=== PATIENT | female | born 1965 | race Caucasian/White ===

== ENCOUNTER 2016-10-15 20:06 | Emergency (ER) | payer BC, OTHER ==
[2016-10-15 20:35] VITALS: BP 133/94; PULSE 81; RESP 20; TEMP 98.2; O2SAT 98
== END 2016-10-15 20:45 | disposition home or self-care (01) | DRG 951 ==
LOC: ED 20:06
DX: Z77.21 Contact with and (suspected) exposure to potentially hazardous body fluids (principal); T14.90 Injury, unspecified; W46.0XXA Contact with hypodermic needle, initial encounter; Y92.129 Unspecified place in nursing home as the place of occurrence of the external cause; Y99.0 Civilian activity done for income or pay
CPT/HCPCS: 84460; 99282

== ENCOUNTER 2018-03-10 03:37 | Emergency (ER) | payer BC, OTHER ==
[2018-03-10 04:19] LABS: BASOPHILS % (AUTO) 1 % (0-3); EOSINOPHILS % (AUTO) 2 % (0-9); HEMATOCRIT 40 % (35-47); LYMPHOCYTES % (AUTO) 30.4 % (10-50); MEAN CORPUSCULAR HEMOGLOBIN 28.7 pg (27.0-32.0); MEAN CORPUSCULAR HGB CONC 32.5 gm/dl (32.0-36.0); MEAN CORPUSCULAR VOLUME 88 fL (81-99); MONOCYTES % (AUTO) 11.7 % (0-12); NEUTROPHILS % (AUTO) 55.7 % (37-80)
[2018-03-10] MEDS ORDERED: SODIUM CHLORIDE 0.9% 250 ML 250 ML IV ONE (04:30)
[2018-03-10 04:36] LABS: ALBUMIN 3.2 gm/dl (3.4-5.0); ALKALINE PHOSPHATASE 63 IU/L (46-116); ALT 26 IU/L (14-63); AST 18 IU/L (15-37); BILIRUBIN,TOTAL 0.4 mg/dl (0.2-1.0); BLOOD UREA NITROGEN 17 mg/dl (7-18); CALCIUM 8.5 mg/dl (8.5-10.1); CARBON DIOXIDE 27.2 mEq/L (21-32); CHLORIDE 104 mMol/L (98-107); CREATININE 1.34 mg/dl (0.60-1.00); GLUCOSE 102 mg/dl (74-106); POTASSIUM 4.5 mMol/L (3.5-5.1); SODIUM 140 mMol/L (136-145); TOTAL PROTEIN 6.4 gm/dl (6.4-8.2); TROP I < 0.017 ng/ml (0.000-0.056)
[2018-03-10 04:45] LABS: INR 0.95 (0.86-1.12)
[2018-03-10] MEDS ORDERED: SODIUM CHLORIDE 0.9% 1000ML 1,000 ML IV ONE ×2 (05:02→06:03)
[2018-03-10 06:38] VITALS: TEMP 96.2
[2018-03-10] MEDS ORDERED: NOREPINEPHRINE BITARTRATE 4 MG/4 ML SOL IV ONE (07:26)
[2018-03-10] MEDS ORDERED: NOREPINEPHRINE 4 MG/4 ML 4 MG in DEXTROSE 500 ML 500 ML IV SCH (07:45)
[2018-03-10 07:49] VITALS: BP 86/51; PULSE 70; RESP 16; O2SAT 97
== END 2018-03-10 07:39 | disposition short-term general hospital (02) | DRG 316 ==
LOC: ED 03:37
DX: I95.9 Hypotension, unspecified (principal)
CPT/HCPCS: 36415; 71045; 80053; 83880; 84484; 85025; 85610; 93005; 96365; 96366; 99284; 99285; J3490

== ENCOUNTER 2018-08-07 06:08 | Emergency (ER) | payer OTHER ==
[2018-08-07] MEDS ORDERED: SODIUM CHLORIDE 0.9% 1000ML 1,000 ML IV ONE (06:25)
[2018-08-07] MEDS ORDERED: HYDROMORPHONE 1 MG/ML SYRINGE IV ONE (06:26)
[2018-08-07] MEDS ORDERED: ONDANSETRON HCL 4 MG/2 ML SOL IV ONE (06:27)
[2018-08-07] MEDS ORDERED: ONDANSETRON HCL 4 MG/2 ML SOL ONE (06:43)
[2018-08-07] MEDS ORDERED: HYDROMORPHONE 1 MG/ML SYRINGE ONE (06:43)
[2018-08-07 06:49] LABS: BASOPHILS % (AUTO) 1 % (0-3); EOSINOPHILS % (AUTO) 1 % (0-9); HEMATOCRIT 45 % (35-47); HEMOGLOBIN 14.7 gm/dl (12.0-15.5); LYMPHOCYTES % (AUTO) 12.9 % (10-50); MEAN CORPUSCULAR HEMOGLOBIN 29.1 pg (27.0-32.0); MEAN CORPUSCULAR HGB CONC 33.1 gm/dl (32.0-36.0); MEAN CORPUSCULAR VOLUME 88 fL (81-99); MONOCYTES % (AUTO) 6.3 % (0-12); NEUTROPHILS % (AUTO) 79.4 % (37-80)
[2018-08-07 06:52] LABS: CALCIUM 8.8 mg/dl (8.5-10.1); CARBON DIOXIDE 26.5 mEq/L (21-32); CREATININE 1.11 mg/dl (0.60-1.00); POTASSIUM 3.8 mMol/L (3.5-5.1)
[2018-08-07 07:50] LABS: APPEARANCE,URINE Slightly Cloudy; BILIRUBIN,URINE NEGATIVE (NEGATIVE); COLOR,URINE Dark yellow; GLUCOSE, URINE (UA) NEGATIVE (NEGATIVE); KETONES,URINE TRACE (NEGATIVE); LEUKOCYTE ESTERASE ,URINE NEGATIVE (NEGATIVE); NITRATE,URINE NEGATIVE (NEGATIVE); OCCULT BLOOD,URINE 2+ (NEG-TRACE); PH,URINE 5.5; UROBILINOGEN,URINE 0.2 (0.2-1.0 EU)
[2018-08-07 07:51] VITALS: TEMP 97.1
[2018-08-07 08:04] LABS: BACTERIA NEGATIVE (< 1+); CRYSTALS NEGATIVE (0-3 AVE/HPF); RBC,URINE 35-40 (0-3AV/HPF)
[2018-08-07 08:36] VITALS: BP 132/89; PULSE 86; RESP 18; O2SAT 94
== END 2018-08-07 08:40 | disposition home or self-care (01) | DRG 694 ==
LOC: ED 06:08
DX: N20.0 Calculus of kidney (principal)
CPT/HCPCS: 36415; 80048; 81001; 85025; 96365; 96374; 96375; 99283; 99284; J2405; J1170